=== PATIENT | female | born 1965 | race Caucasian/White ===

== ENCOUNTER 2024-03-16 16:01 | Emergency (ER) | payer OTHER, SELFPAY ==
[2024-03-16 16:07] VITALS: BP 206/87; PULSE 79; RESP 17; TEMP 36.6; O2SAT 95; BMI 64.3
--- NOTE | 2024-03-16 16:43 | ED_ITS ---
HPI - Dental/Oral <Del Severino PA-C - Last Filed: 03/16/24 17:02> General Chief complaint: Dental/Oral Stated complaint: Swollen face Time Seen by Provider: 03/16/24 16:42 Source: patient Mode of arrival: Ambulatory History of Present Illness HPI Narrative: This is a 58-year-old female presents emergency department due to left jaw pain patient reports eating a granola bar yesterday and sooner if she notes the pain to her left jaw and cheek. Pain has slowly worsened over the night causing him present here. Denies any fevers, chills, nausea, vomiting, or any other concerning signs or symptoms. Related Data Home Medications Medication Instructions Recorded Confirmed amlodipine PO 12/31/23 12/31/23 promethazine PO 12/31/23 12/31/23 rizatriptan PO 12/31/23 12/31/23 venlafaxine [Effexor XR] PO 12/31/23 12/31/23 Previous Rx's Medication Instructions Recorded prednisone 20 mg tablet 40 mg (2 x 20 mg) PO DAILY #10 tabs 01/01/24 cephalexin 500 mg capsule 500 mg PO QID #28 caps 03/16/24 Allergies Allergy/AdvReac Type Severity Reaction Status Date / Time amoxicillin Allergy Unknown Rash Verified 03/16/24 16:11 clavulanic acid Allergy Unknown Rash Verified 03/16/24 16:11 [From Augmentin] Sulfa (Sulfonamide Allergy Unknown Nausea Verified 03/16/24 16:11 Antibiotics) Review of Systems <Del Severino PA-C - Last Filed: 03/16/24 17:02> Review of Systems Narrative: GENERAL: Denies chills, fatigue, malaise, fever, sweats. HEENT: Reports left cheek swelling Denies sinus pain, ear pain, sore throat, difficulty swallowing, dizziness. RESPIRATORY: Denies dyspnea, cough, wheezing, hemoptysis, sputum. CARDIOVASCULAR: Denies chest pain, palpitations, orthopnea, edema, GASTROINTESTINAL: Denies nausea, vomiting, abdominal pain, diarrhea, constipation, melena. : Denies dysuria, frequency, incontinence, hematuria, urinary retention. MUSCULOSKELETAL: denies weakness, joint pain, or bony pain SKIN: Denies rash, skin lesions, or other NEUROLOGIC: Denies weakness, headache, numbness, change in speech, confusion, seizures, incoordination. PSYCHIATRIC: No concerning psychosocial issues. 12 point review of systems is negative except for those stated above Patient History <Del Severino PA-C - Last Filed: 03/16/24 17:02> Social History Smoking Status: Never smoker Smoking Status: Never smoker alcohol intake frequency: holidays/special occasions only Substance Use Type: does not use Exam <Del Severino PA-C - Last Filed: 03/16/24 17:02> Narrative Exam Narrative: GENERAL: Well-developed patient, in mild distress. HEAD: Atraumatic. Normocephalic. Swelling to the left cheek, no significant erythema affecting the gumline no abscesses around the teeth EYES: Pupils equal round and reactive. Extraocular motions intact. No scleral icterus. No injection or drainage. ENT: Nose without bleeding, purulent drainage. Throat without erythema, tonsillar hypertrophy or exudate. Airway patent. NECK: Trachea midline. Non tender EXTREMITIES: No edema or joint tenderness. NEURO: AOx3. SKIN: No rash or erythema of visible areas Initial Vital Signs Initial Vital Signs: Vital Signs Temperature 98 F 03/16/24 16:07 Pulse Rate 79 03/16/24 16:07 Respiratory Rate 17 03/16/24 16:07 Blood Pressure 206/87 H 03/16/24 16:07 Pulse Oximetry 95 03/16/24 16:07 Oxygen Delivery Method Room Air 03/16/24 16:07 <Mauro Dennis MD - Last Filed: 03/16/24 18:50> Initial Vital Signs Initial Vital Signs: Vital Signs Temperature 98 F 03/16/24 16:07 Pulse Rate 79 03/16/24 16:07 Respiratory Rate 17 03/16/24 16:07 Blood Pressure 206/87 H 03/16/24 16:07 Pulse Oximetry 95 03/16/24 16:07 Oxygen Delivery Method Room Air 03/16/24 16:07 Course <Del Severino PA-C - Last Filed: 03/16/24 17:02> Vital Signs Vital signs: Vital Signs - 8 hr 03/16/24 16:07 03/16/24 17:03 Temperature 98 F Pulse Rate 79 74 Respiratory Rate 17 18 Blood Pressure 206/87 H 150/85 H Pulse Oximetry 95 99 Oxygen Delivery Method Room Air Room Air <Mauro Dennis MD - Last Filed: 03/16/24 18:50> Vital Signs Vital signs: Vital Signs - 8 hr 03/16/24 16:07 03/16/24 17:03 Temperature 98 F Pulse Rate 79 74 Respiratory Rate 17 18 Blood Pressure 206/87 H 150/85 H Pulse Oximetry 95 99 Oxygen Delivery Method Room Air Room Air MDM - Dental/Oral <Del Severino PA-C - Last Filed: 03/16/24 17:02> MDM Narrative Medical decision making narrative: ED course: This is a 58-year-old female presents to the emergency department due to left cheek swelling. Possible sialoadenitis, but shared decision-making utilized and we will cover for possible infection as well. No airway compromise. CC: Left cheek swelling Complicating co-morbidities: None Data collected from: Previous notes Medical records reviewed: Patient was not been to this emergency department the past. Patient was seen by her primary care provider 2 months ago due to wheezing. Allergic to amoxicillin and sulfa antibiotics. Medical history of hypertension, depression, anxiety, TERRELL Differential considered, but not limited to: Sialadenitis, dental infection Exam documented above, pertinent findings include: Left cheek swelling no significant erythema Lab Test results independently reviewed as above. Pertinent findings: None obtained Imaging studies independently reviewed: Not obtained Scores Used: None MIPS Elements: None Consultations: None Treatments: None Re-evaluations: None Discussion: Discussed plan with the patient was comfortable with the plan Diagnosis: Left cheek swelling Disposition: see below, along with detailed discharge instructions that have b een reviewed with patient as well as indications for ED re-evaluation and additional outpatient follow up Discharge Plan Departure Patient Disposition: Home Clinical Impression: Toothache Instructions: Parotitis Activity Restrictions/Additional Instructions: Thank you for coming to the [facility] Emergency Department today. As we discussed this may be a blocked salivary gland. We will also cover you for antibiotic coverage with in case this is more of a dental infection. Please practice techniques showed you. Please return to the emergency department if you develop any difficulty breathing or swallowing, or any other concerning signs or symptoms. I hope you feel better soon. Please follow up with your primary care provider within a week if your symptoms continue. If you do not have a primary care provider please contact the [facility] Resource line at [phone]. They will ask some questions about your medical history and help you get set up with a provider in the community. Prescriptions: New cephalexin 500 mg capsule 500 mg PO QID Qty: 28 0RF No Action venlafaxine [Effexor XR] PO promethazine PO rizatriptan PO amlodipine PO prednisone 20 mg tablet 40 mg PO DAILY Qty: 10 0RF Referrals: Miscellaneous,Doctor, [Primary Care Provider] - Stand Alone Forms: Patient Portal/API ED Sign-out <Mauro Dennis MD - Last Filed: 03/16/24 18:50> [facility] I was immediately available in the department for consultation. This documentation has been reviewed and I agree with assessment and plan. Supervised by Mauro Dennis MD
[2024-03-16 17:03] VITALS: BP 150/85; PULSE 74; RESP 18; O2SAT 99
== END 2024-03-16 17:09 | disposition home or self-care (01) ==
PROVIDERS: Emergency Provider Physician Assistant Medical
DX: K08.89 Other specified disorders of teeth and supporting structures (principal)
CPT/HCPCS: 99281; 99283

== ENCOUNTER → 2024-10-26 14:51 | Outpatient (CLI) | payer OTHER, SELFPAY ==
--- NOTE | 2024-10-26 14:52 | DI.MG.S_ITS ---
MM screening mammo BI: 10/26/2024. BI-RADS: 1 CLINICAL: 59-year old female for bilateral screening mammogram. Tyrer-Cuzick lifetime risk of 11.4%. No personal or first-degree family history of breast cancer. PRIOR EXAMS: 08/05/2022, 05/11/2020, 02/09/2018, 11/10/2017. MAMMOGRAPHY TECHNIQUE: 2D and 3D (tomosynthesis) digital mammographic views obtained, with additional images as needed for full coverage. Current study was also evaluated with a Computer Aided Detection (CAD) system. DENSITY B. There are scattered areas of fibroglandular density. MAMMOGRAPHY FINDINGS Bilateral: No suspicious mass, asymmetry, microcalcification, or other abnormality seen. IMPRESSION: * No evidence of malignancy. RECOMMENDATIONS Bilateral * Annual screening mammography. OVERALL ASSESSMENT CATEGORY BI-RADS-1: Negative. The [employer] recommends annual screening mammography beginning at age 40 for women with average risk of breast cancer. ELECTRONICALLY SIGNED: Mindy Rebolledo M.D. on 10/26/2024 at 05:40:48 PM PT Interpreting Station ID: [id number]
== END ==
PROVIDERS: PCP Family Medicine; Referring Provider Family Medicine; Visit Provider Family Medicine
DX: Z12.31 Encounter for screening mammogram for malignant neoplasm of breast (principal)
CPT/HCPCS: 77063; 77067

== ENCOUNTER → 2024-12-12 09:36 | Outpatient (CLI) | payer OTHER, SELFPAY ==
[2024-12-12 10:35] LABS: Hematocrit 36.2 % (36-46); Hemoglobin 11.7 g/dL (12.0-16.0); Mean Corpuscular HGB Conc 32.2 % (30-36); Mean Corpuscular Hemoglobin 25.7 PG (26-34); Mean Corpuscular Volume 79.7 fL (80-100); Platelet Count 360 X10^3/uL (150-400); Red Blood Cell Count 4.54 X10^6/uL (4.0-5.2); Red Cell Distribution Width 15.7 % (11.6-14.8); White Blood Cell Count 8.8 X10^3/uL (4.5-11.0)
--- NOTE | 2024-12-12 10:44 | EKG_ITS ---
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
[2024-12-12 11:03] LABS: Alanine Aminotransferase 18 IU/L (<35); Albumin 3.5 g/dL (3.5-5.0); Albumin Globulin Ratio 1.2 (1.0-2.8); Alkaline Phosphatase 91 U/L (38-126); Aspartate Aminotransferase 21 IU/L (14-36); BUN Creatinine Ratio 21.5 (6-22); Bilirubin Total 0.3 mg/dL (0.2-1.3); Blood Urea Nitrogen 17 mg/dL (7-17); Calcium 8.9 mg/dL (8.4-10.2); Carbon Dioxide 27 mmol/L (22-32); Chloride 105 mmol/L (98-107); Estimated Glomerular Filt Rate > 60 mL/min (>60); Glucose 111 mg/dL (70-99); HEMOLYSIS < 15 (0-50); Potassium 3.8 mmol/L (3.4-5.1); Sodium 141 mmol/L (137-145); Total Protein 6.5 g/dL (6.3-8.2)
== END ==
PROVIDERS: PCP Family Medicine; Referring Provider Family Medicine; Visit Provider Family Medicine
DX: I10 Essential (primary) hypertension (principal); Z86.2 Personal history of diseases of the blood and blood-forming organs and certain disorders involving the immune mechanism; F32.A Depression, unspecified; Z01.818 Encounter for other preprocedural examination
CPT/HCPCS: 36415; 80053; 85027; 86850; 86900; 86901; 93005

== ENCOUNTER → 2025-01-19 10:08 | Outpatient (CLI) | payer OTHER, SELFPAY ==
[2025-01-19 11:12] LABS: Hemoglobin 12.0 g/dL (12.0-16.0)
[2025-01-19 11:40] LABS: Hemoglobin A1C% w Est Avg Glu 5.3 % (4.0-6.0)
[2025-01-19 11:41] LABS: Cholesterol 153 mg/dL (140-199); HDL Cholesterol 41 mg/dL (40-60); Triglycerides 65 mg/dL (35-150)
== END ==
PROVIDERS: PCP Family Medicine; Referring Provider Family Medicine; Visit Provider Family Medicine
DX: Z13.220 Encounter for screening for lipoid disorders (principal); Z13.1 Encounter for screening for diabetes mellitus; Z13.0 Encounter for screening for diseases of the blood and blood-forming organs and certain disorders involving the immune mechanism
CPT/HCPCS: 36415; 80061; 83036; 85018

== ENCOUNTER → 2025-02-21 13:10 | Outpatient (CLI) | payer OTHER, SELFPAY ==
--- NOTE | 2025-02-21 16:58 | DIET.OUTPTC ---
Dietary Outpatient Consult Consult Date:02/21/25 Assessment:? 59 y F referred to dietitian for: obesity/ BMI 60.0-69.9 Pt presents with sister. Pt, sister, and sister's live together. Previous weight loss with weight watchers and consistent exercise, but difficult to sustain during life events (e.g. parents passing away). Wants to explore Mediterranean diet and guidance on food choices. GI symptoms: N/V with migraines, no D/C, BMs daily Diet Recall: B-eggs or cottage cheese with fruit and coffee/diet coke or if on the go, [employer] granola bar L-chk - enchiladas, chk salad etc., fruit D-salmon/beef, sometimes not always having multiple different components, just 1 macro 1-2 post dinner snacks- weight watcher ice cream bars/cheese/crackers/chips/cookies Fluids: 4 diet sodas + water 01/19/2509:07 pcp's office Height 5 ft 4 in Weight 382 lb 2 oz BMI 65.5 Activity: Walks MWF (w/ friend- friend injured foot so not going as far as usual, pt wakes up and goes extra 10 mins herself on Mondays), wants to get back to swimming on TR. Has stationary bike and treadmill at home, does have knee pain Pertinent Labs:lipid panel and A1c WNL Nutrition Diagnosis:? Excessive energy intake r/t energy dense snacks post dinner aeb diet recall Interventions:? Discussed and provided appropriate resources on the following: -Mediterranean eating style, addressed questions on other dietary styles (e.g. keto) -Activity -Label reading -Touched on CHO consistent eating patterns and portion of CHO at meals d/t both sister and sister's having DM2 and changes that are being made are for the whole household -Hunger fullness scale Goals: -Time limited during session (pt arrived late), pt to brainstorm ideas of snack options with protein/fiber sources to pair with or replace current snack options and we will review next session. Will further discuss what to add to dinner and lunch to make more satiating and using fullness/hunger scale Monitoring/Evaluations:? F/u in 2 wks. Electronically Signed by: Viv Whitehead Clinical Dietitian [address] [id number]
== END ==
LOC: DIET 13:12
PROVIDERS: PCP Family Medicine
DX: E66.9 Obesity, unspecified (principal); Z68.44 Body mass index [BMI] 60.0-69.9, adult; Z71.3 Dietary counseling and surveillance; Z63.4 Disappearance and death of family member
CPT/HCPCS: 97802